=== PATIENT | female | born 1950 | race Caucasian/White ===

== ENCOUNTER → 2016-08-22 | Outpatient (CLI) | payer BC ==
[~2016-08-22] MED LIST: ACETAMINOPHEN PO; ADVAIR 250-501 EAC1 INH; ADVAIR 2501 DISK W/D PO; ASPIRIN81 M2 PO; ATIVAN PO; AUGMENTIN PO; B COMPLEX1 EACH; BENADRYL PO; CALCIUM + D SO1 EACH PO; CALCIUM PO; COMBIVENT INH14.7 GM INH; FISH OIL 1,2001 EAC3 PO; FLAGYL PO; FLONASE 0.05% N16 G1; FLONASE ALLERG9.9 ML; GABAPENTIN300 M2 PO; GLUCOSAMINE/CHONDROI PO; HYDROCODON-ACE1 EAC9 PO; IBUPROFEN IB200 M1 PO; KEFLEX PO; MULTI-VITAMIN1 EAC1 PO; NASONEX17 GM; NEURONTIN300 MG PO; OMNICEF300 MG PO; PATIENT'S PHARMACY; PROZAC PO; ROBITUSSIN-DM120 ML PO; SINGULAIR PO; SYNTHROID PO; ZANTAC PO; ZITHROMAX PO; ZYRTEC10 M1 PO
--- NOTE | ~2016-08-22 | MY11 ---
[facility] A Service of [facility] RADIOLOGY TEXT RESULTS PATIENT: KIMMIE ALCANTAR [facility] 51 UNIT #: [id number] AGE: [address]: Taylor Renner MD SEX: F ORDER DR: [id number] [place] [id number] [facility]. [place], [place] [address] [id number] O MR#: [id number] Acc #: [id number] NAME: KIMMIE ALCANTAR : 1950 SEX: F STUDY DATE/TIME: 08/22/2016 11:57 [facility] ROOM: STUDY DESCRIPTION: MY Mammogram Screening Dig Jesus Attending Physician: Taylor Renner M.D. Ordering Physician: Taylor Renner M.D. Primary Care Physician: Taylor Renner M.D. MEDICAL IMAGING REPORT This report is preliminary unless electronic signature is present EXAM Bilateral Digital Screening Mammogram with CAD 08/22/2016 INDICATION Breast cancer screening. 65-year-old asymptomatic female. No personal or family history of breast cancer. COMPARISON 08/11/2015, 02/16/2014, 03/17/2012, 03/29/2011, 03/13/2011, 04/18/2009, 04/15/2008, 02/04/2007, 02/22/2006 FINDINGS There are scattered fibroglandular tissues. No suspicious findings are present. IMPRESSION No mammographic evidence of malignancy. Annual screening mammography and clinical breast exam are recommended. A result letter will be sent to the patient. Patients over the age of 40 are entered into a reminder system with target due date for the next mammogram. BIRADS: 1 Negative Dictated by... Nikolas De La Torre M.D. THIS IS AN ELECTRONICALLY VERIFIED REPORT Nikolas De La Torre M.D. at 08/24/2016 4:01 PM Sally [facility] A Service [facility] RADIOLOGY TEXT RESULTS PATIENT: KIMMIE ALCANTAR [facility] 51 UNIT #: [id number] AGE: [address]: Taylor Renner MD SEX: F ORDER DR: TD: 08/22/2016 15:00 JOB #: [id number] MEDICAL IMAGING REPORT Page 1 of 1 COPY
== END | disposition home or self-care (01) ==
LOC: CWCC 11:40
DX: Z12.31 Encounter for screening mammogram for malignant neoplasm of breast (principal)
CPT/HCPCS: G0202

== ENCOUNTER 2016-09-12 11:32 | Emergency (ER) | payer OTHER ==
--- NOTE | ~2016-09-12 | CT2 ---
[facility] A Service of [facility] RADIOLOGY TEXT RESULTS PATIENT: KIMMIE ALCANTAR LOCATION: SED : 51 UNIT #: [id number] AGE: [address]: Sixto Aguirre MD SEX: F ORDER DR: [id number] [address] [address] [id number] E MR#: [id number] Acc #: [id number] NAME: KIMMIE ALCANTAR : 1950 SEX: F STUDY DATE/TIME: 09/12/2016 14:35 UNIT: SED ROOM: STUDY DESCRIPTION: CT Abd and Pelv W Cont Attending Physician: Sixto Aguirre M.D. Ordering Physician: Sixto Aguirre M.D. Primary Care Physician: Taylor Renner M.D. MEDICAL IMAGING REPORT This report is preliminary unless electronic signature is present. EXAM CT scan of the abdomen and pelvis with contrast HISTORY Right upper quadrant pain since 10:30 last night. COMPARISON 05/01/2012 TECHNIQUE The patient was given 100 mL of Isovue-370 and axial 5.0 mm images were obtained through the abdomen and pelvis with IV contrast. This CT exam was performed with one or more of the following radiation dose reduction techniques: automatic exposure control, adjustment of mA and/or kV according to patient size, and iterative reconstruction. FINDINGS The liver has a 7.0 mm cyst within it and is otherwise normal. The gallbladder is normal. The spleen, pancreas, adrenal glands and kidneys are normal. The aorta is normal in size and there is no adenopathy. The bowel shows left colon diverticula. The appendix is normal. The uterus and adnexal regions and bladder are normal. There are degenerative changes in the lumbar spine. IMPRESSION 1. No acute findings. The appendix is normal. There are left colon diverticula. 2. The gallbladder is slightly distended but appears normal. There is wall thickening identified. 3. Otherwise the study is negative. [facility] A Service [facility] RADIOLOGY TEXT RESULTS PATIENT: KIMMIE ALCANTAR LOCATION: SED : 51 UNIT #: [id number] AGE: [address]: Sixto Aguirre MD SEX: F ORDER DR: Dictated by... Ethan Bain M.D. THIS IS AN ELECTRONICALLY VERIFIED REPORT Ethan Bain M.D. at 09/12/2016 3:39 PM JOEL/alina TD: 09/12/2016 15:12 JOB #: [id number] MEDICAL IMAGING REPORT Page 1 of 1
[~2016-09-12 11:32] MED LIST changes: -ACETAMINOPHEN PO; -ADVAIR 250-501 EAC1 INH; -ASPIRIN81 M2 PO; -AUGMENTIN PO; -B COMPLEX1 EACH; -CALCIUM + D SO1 EACH PO; -FISH OIL 1,2001 EAC3 PO; -FLAGYL PO; -FLONASE 0.05% N16 G1; -FLONASE ALLERG9.9 ML; -GABAPENTIN300 M2 PO; -HYDROCODON-ACE1 EAC9 PO; -IBUPROFEN IB200 M1 PO; -NEURONTIN300 MG PO; -OMNICEF300 MG PO; -PATIENT'S PHARMACY; -SINGULAIR PO; -ZYRTEC10 M1 PO
[2016-09-12] MEDS ORDERED: FLONASE 0.05% N16 G1 (11:34)
[2016-09-12] MEDS ORDERED: SINGULAIR PO (11:34)
[2016-09-12] MEDS ORDERED: ZYRTEC10 M1 PO (11:34)
[2016-09-12] MEDS ORDERED: CALCIUM + D SO1 EACH PO (11:35)
[2016-09-12 13:20] LABS: BASOPHIL# 0.1 X10e3 (0-0.3); BASOPHIL% 0.7 % (0-2.5); EOSINOPHIL# 0.2 X10e3 (0-0.7); HEMATOCRIT 46.7 % (35.0-45.0); HEMOGLOBIN 16.3 gm/dL (12.0-16.0); LYMPHOCYTE# 1.7 X10e3 (1.0-3.5); LYMPHOCYTE% 14.2 % (17.0-45.0); MEAN CELL VOLUME 94.9 FL (83-96); MEAN CORPUSCULAR HGB CONC 34.8 g/dL (30-36); MEAN PLATELET VOLUME 9.9 FL (6.5-11.5); MONOCYTE# 0.7 X10e3 (0-1.0); MONOCYTE% 5.5 % (3.0-12.0); NEUTROPHIL# 9.4 X10e3 (1.5-7.1); NEUTROPHIL% 77.6 % (40-75); PLATELET COUNT 257 X10e3 (140-420); RED BLOOD COUNT 4.93 X10e (3.90-5.30); RED CELL DISTRIBUTION WIDTH 12.8 % (11.0-15.5); WHITE BLOOD COUNT 12.2 X10e3 (4.0-10.5)
[2016-09-12 13:27] LABS: DIFF IND NO
[2016-09-12 13:41] LABS: ALBUMIN SERUM 4.6 g/dL (3.5-5.0); BILIRUBIN, DIRECT 0.1 mg/dL (0.0-0.2); BILIRUBIN,INDIRECT 0.4 mg/dL (0.0-0.9); BILIRUBIN,TOTAL 0.5 mg/dL (0.2-2.0); BUN/CREATININE RATIO 22.85; CALCIUM SERUM 8.9 mg/dL (8.4-10.2); CREATININE SERUM 0.7 mg/dL (0.6-1.4); GLOM FILT RATE Estimated 91.6 mL/min (>60); POTASSIUM 3.9 mmol/L (3.5-5.1); PROTEIN TOTAL SERUM 7.7 g/dL (6.0-8.3)
[2016-09-12 13:44] LABS: URINE SOURCE CLEAN CATCH
[2016-09-12 13:47] LABS: URINE APPEARANCE CLEAR; URINE BILIRUBIN NEG (NEG); URINE BLOOD TRACE-INTACT (NEG); URINE COLOR YELLOW; URINE GLUCOSE NEG (NORM); URINE KETONE TRACE (NEG); URINE LEUKOCYTE ESTERASE NEG (NEG); URINE NITRATE NEG (NEG); URINE PH 5.5 (5-8); URINE PROTEIN NEG (NEG); URINE SPECIFIC GRAVITY <=1.005 (1.003-1.035); URINE UROBILINOGEN 0.2 MG/DL (NORM)
[2016-09-12 13:50] LABS: MICRO INDICATED? YES
[2016-09-12 14:10] LABS: CULTURE INDICATED? NO; URINE BACTERIA NEG (NEG); URINE RBC 0-2 /[HPF] (0-2); URINE WBC 0-2 /[HPF] (0-5)
[2016-09-13] MEDS ORDERED: NEURONTIN300 MG PO (02:14)
[2016-11-05] MEDS ORDERED: B COMPLEX1 EACH (11:49)
[2016-11-05] MEDS ORDERED: IBUPROFEN IB200 M1 PO (11:50)
[2016-11-05] MEDS ORDERED: ASPIRIN81 M2 PO (11:50)
[2016-11-05] MEDS ORDERED: FISH OIL 1,2001 EAC3 PO (11:52)
[2016-11-05] MEDS ORDERED: FLONASE ALLERG9.9 ML (11:53)
== END 2016-09-12 15:36 | disposition home or self-care (01) ==
LOC: SED 11:32
PROVIDERS: Emergency Medicine
DX: R10.84 Generalized abdominal pain (principal); J45.909 Unspecified asthma, uncomplicated; K21.9 Gastro-esophageal reflux disease without esophagitis; F41.9 Anxiety disorder, unspecified; F17.200 Nicotine dependence, unspecified, uncomplicated; Z79.899 Other long term (current) drug therapy
CPT/HCPCS: 74177; 80048; 80076; 81003; 83690; 85025; 96361; 96374; 96375; 99284; J2405; Q9967

== ENCOUNTER 2016-09-13 02:05 | Inpatient (IN) | payer OTHER ==
--- NOTE | ~2016-09-13 | OR ---
Unit #: [id number] #: [id number] Patient: KIMMIE ALCANTAR [id number] [address] [place], [place] [address] [id number] I MR#: [id number] NAME: KIMMIE ALCANTAR. ROOM: 11210 Date of Procedure: 09/13/2016 Admission Date: 09/13/2016 Surgeon: Lenard Rabago M.D. : 1950 Attending Physician: Tita Alvarez M.D. Primary Care Physician: Taylor Renner M.D. PROCEDURE OPERATIVE NOTE PROCEDURES PERFORMED 1. EGD to descending duodenum. 2. ERCP with sphincterotomy. 3. ERCP with balloon extraction of common bile duct stones. 4. ERCP with stenting of common bile duct with 7 x 7 stent. INDICATION The patient presented with acute biliary colic, possible ascending cholangitis, obstructive jaundice, most likely secondary to common bile duct stones. MEDICATIONS Monitored anesthesia. POSTOP FINDING 1. EGD exam shows mild gastritis, normal esophagus, normal duodenum and distal duodenum. 2. ERCP exam of bile duct shows significant dilation with 10 mm filling defect as well as pus coming out of the ampulla. 3. Small sphincterotomy was made. 4. Balloon extraction of a lot of pus and a single pigment small stone was carried out. 5. A 7 x 7 CBD stent was placed. 6. BD was injected. PLAN Follow up clinically. Laparoscopic cholecystectomy per Surgery. Repeat ERCP after six weeks. DESCRIPTION OF PROCEDURE Patient was explained the procedure, risks and benefits along with the risks and benefits of anesthesia. She was brought to the endoscopy room. Propofol anesthesia was given. She was laid in a prone position. EGD was done first. The scope was passed down the mouth into the esophagus, stomach, duodenum and distal duodenum. Findings as described. No biopsies taken. Gently, I pulled the scope out of patient's mouth. At this time, a side-viewing ERCP scope was passed down the mouth into the esophagus, stomach, duodenum, and distal duodenum. Ampulla was very prominent. After one or two attempts, I was able to get into the common bile duct. The findings have been described above. A small sphincterotomy was made. A lot of pus came out. Balloon extraction of pus Unit #: [id number] #: [id number] Patient: KIMMIE ALCANTAR and a single pigment stone was carried out successfully. At this point, we placed a 7 x 7 CBD stent across the duct under fluoroscopic and endoscopic guidance. The stomach was then decompressed gently. The scope was pulled out. The patient tolerated the procedure well. No major complications. Dictated by... Joanne Whittington/mata TD: 09/13/2016 11:54 JOB #: [id number] PROCEDURE OPERATIVE NOTE Page 1 of 1 X Lenard Rabago MD X PROCEDURE OPERATIVE NOTE
--- NOTE | ~2016-09-13 | CR63 ---
[facility]. [facility] A Service of [facility] RADIOLOGY TEXT RESULTS PATIENT: KIMMIE ALCANTAR LOCATION: [place] [address]- : 51 UNIT #: [id number] AGE: [address]: Tita Alvarez MD SEX: F ORDER DR: [id number] [place] [address] [id number] I MR#: [id number] Acc #: [id number] NAME: KIMMIE ALCANTAR : 1950 SEX: F STUDY DATE/TIME: 09/13/2016 03:13 UNIT: SEDOF ROOM: [facility] STUDY DESCRIPTION: CR Chest 2 View Attending Physician: Tita Alvarez M.D. Ordering Physician: Jason Sanders M.D. Primary Care Physician: Taylor Renner M.D. MEDICAL IMAGING REPORT This report is preliminary unless electronic signature is present. EXAM Chest x-ray 09/13 and 3 hours INDICATIONS Shaking chills, fever and cough started prior to arrival this evening. History of smoking. FINDINGS 2 views of the chest are compared with 11/02/2007. Cardiac and mediastinal contours are normal. The lungs are emphysematous but clear. There is no pneumothorax. IMPRESSION Emphysema. No active disease. Dictated by... Danny Barlow Jr., M.D. THIS IS AN ELECTRONICALLY VERIFIED REPORT Danny Barlow Jr., M.D. at 09/13/2016 10:13 PM KIMBER/aarti TD: 09/13/2016 06:13 JOB #: [id number] MEDICAL IMAGING REPORT Page 1 of 1
--- NOTE | ~2016-09-13 | CR84 ---
[facility] A Service of [facility] RADIOLOGY TEXT RESULTS PATIENT: KIMMIE ALCANTAR LOCATION: [facility] 549-01 : 51 UNIT #: [id number] AGE: [address]: Tita Alvarez MD SEX: F ORDER DR: [id number] [facility] [address] [facility] [place], [place] [address] [id number] I MR#: [id number] Acc #: [id number] NAME: KIMMIE ALCANTAR : 1950 SEX: F STUDY DATE/TIME: 09/13/2016 10:06 UNIT: [facility] ROOM: [facility] STUDY DESCRIPTION: CR ERCP Biliary and Pancr SI Attending Physician: Tita Alvarez M.D. Ordering Physician: Lenard Rabago M.D. Primary Care Physician: Taylor Renner M.D. MEDICAL IMAGING REPORT This report is preliminary unless electronic signature is present EXAM Fluoroscopy during ERCP 09/13/2016 HISTORY 65-year-old female with history of obstructive jaundice. TECHNIQUE C-arm fluoroscopy was provided by x-ray technologist during ERCP procedure performed by Dr. Rabago. Fluoroscopy time 2 minutes, 32 seconds. 6 fluoroscopic spot film images were recorded. FINDINGS Minimal extrahepatic bile duct dilatation. By report, balloon sweeps were performed to remove bile duct stone material, a sphincterotomy was performed and a bile duct stent was placed. Final image shows satisfactory position of the common bile duct stent. Please see operative note for details. Dictated by... Jamey Stewart M.D. THIS IS AN ELECTRONICALLY VERIFIED REPORT Jamey Stewart M.D. at 09/13/2016 4:29 PM LUISW/kd TD: 09/13/2016 14:39 JOB #: [id number] MEDICAL IMAGING REPORT Page 1 of 1 COPY
--- NOTE | ~2016-09-13 | OR ---
Unit #: [id number] #: [id number] Patient: KIMMIE ALCANTAR [id number] [address] [place], [place] [address] [id number] I MR#: [id number] NAME: KIMMIE ALCANTAR. ROOM: [facility] Date of Procedure: 09/14/2016 Admission Date: 09/13/2016 Surgeon: Anuel Hubbard III, M.D. : 1950 Attending Physician: Tita Alvarez M.D. Primary Care Physician: Taylor Renner M.D. OPERATIVE REPORT PREOPERATIVE DIAGNOSIS History of cholangitis and gallstones. POSTOPERATIVE DIAGNOSES History of cholangitis and gallstones with hydrops gallbladder. PROCEDURE PERFORMED Laparoscopic cholecystectomy. ANESTHESIA General. SPECIMENS Gallbladder to Pathology. COMPLICATIONS None apparent. ESTIMATED BLOOD LOSS Minimal. INDICATIONS FOR PROCEDURE This is a 65-year-old lady, who presented with cholangitis and underwent ERCP yesterday with stent placement. She feels better today and is here today for laparoscopic cholecystectomy. DESCRIPTION OF PROCEDURE After consent was obtained, the patient was brought to the operating room and placed in the supine position. General anesthetic was administered. Her abdomen was prepped and draped in standard surgical fashion. I made a 5-mm incision in the right upper quadrant. I used an Optiview to enter into the peritoneal cavity without any difficulty. CO2 pneumoperitoneum was established. Next, a second 5-mm port was placed in the infraumbilical region and an 11-mm port was placed in the midepigastric region and a third 5-mm port was placed in the right lateral subcostal region. She had a distended inflamed appearing gallbladder with really no adhesions to it. Upon grasping the gallbladder, the dome of it did rupture and it had some hydrops fluid as well as some purulent material within it. I was able to retract it superiorly and laterally and I was able to dissect out the cystic duct and cystic artery, and after these were carefully identified, I placed two clips proximally, one clip distally along both structures and then they were divided. The Unit #: [id number] #: [id number] Patient: KIMMIE ALCANTAR gallbladder was then taken off the liver bed using the hook cautery. I had good hemostasis. I did irrigate and had again good hemostasis at the end. The gallbladder was placed in an EndoCatch bag and retrieved through the epigastric port incision without dilatation of the fascia. I removed all the trocars and released pneumoperitoneum. The incisions were all injected with 0.25% plain Marcaine and I reapproximated the skin edges with interrupted 4-0 Vicryl subcuticular suture. Steri-Strips were then applied. The patient tolerated the procedure without any problems and returned to recovery room in stable condition. Dictated by... Anuel Hubbard III, M.D. VCL/briana TD: 09/15/2016 01:20 JOB #: [id number] CC: Lenard Rabago M.D. OPERATIVE REPORT Page 1 of 1 X Anuel Hubbard III, MD X PROCEDURE OPERATIVE NOTE
--- NOTE | ~2016-09-13 | DS ---
Unit #: [id number] #: [id number] Patient: KIMMIE ALCANTAR [id number] [address] [address] [id number] I MR#: [id number] NAME: KIMMIE ALCANTAR ROOM: 549 Age: 65 Sex: F Admission Date: 09/13/2016 : 1950 Discharge Date: 09/15/2016 Attending Physician: Tita Alvarez M.D. Primary Care Physician: Taylor Renner M.D. DISCHARGE SUMMARY DISCHARGE DIAGNOSES 1. Acute cholecystitis status post lap cholecystectomy, stable from surgery and GI standpoint both to be discharge. 2. Elevated LFTs trending down. 3. Chronic obstructive pulmonary disease at the baseline. 4. Depression and anxiety, continue home medications. 5. Hypothyroidism, continue home medications. DISCHARGE MEDICATIONS 1. Advair Diskus inhaler b.i.d. 2. Tylenol p.r.n. 3. Flonase nasal spray daily 4. Neurontin 300 mg b.i.d. 5. Zyrtec 10 mg daily 6. Ativan 0.5 mg p.o. t.i.d. p.r.n. for anxiety as a home dose 7. Zantac 150 mg p.o. daily 8. Singulair 10 mg daily 9. Multivitamin daily 10. Calcium and vitamin D one tablet daily 11. Levothyroxine 150 mcg daily 12. Mcallen 7.5 q.6h p.r.n. for pain 13. Augmentin 875 mg p.o. b.i.d. for five days CONSULTS DURING THIS HOSPITAL STAY 1. Dr. Rabago - GI 2. Dr. Pena - surgery LABS AND DIAGNOSTIC PRODEDURES DURING THIS HOSPITAL STAY 1. Lap merline per Dr. Pena. 2. CT of the abdomen and pelvis on admission, no acute findings. 3. Chest x-ray also no acute findings. 4. ERCP with the bile duct stone extraction and sphincterotomy was performed. HISTORY OF PRESENT ILLNESS AND HOSPITAL STAY Please refer to H and P done by me for initial presentation of this female. ACTIVE PROBLEMS DIAGNOSED Abdominal pain, turned out to be acute cholecystitis, status post evaluation per GI and surgery, status post ERCP as above. CT of the abdomen as above. Status post lap cholecystectomy, postop day #2 the patient is doing great. Her LFTs are getting down. She is eating diet without any problems. White count at 10.7 with the very low grade fever 99.4; however, had been taking Zosyn last three days. Will discharge on Unit #: [id number] #: [id number] Patient: KIMMIE ALCANTAR p.o. Augmentin for five more days, again cleared to be discharged both GI and surgery. OUTPATIENT FOLLOWUP With primary care physician in mog-ff-oskvf days. The patient was advised that if she continues to be with the fevers to come back to the hospital. Dictated by... Joanne Lucio/neto TD: 09/15/2016 14:06 JOB #: [id number] DISCHARGE SUMMARY Page 1 of 1 X Curtis Martin MD X DISCHARGE SUMMARY
--- NOTE | ~2016-09-13 | HP ---
Unit #: [id number] #: [id number] Patient: KIMMIE ALCANTAR [id number] [address] [address] [id number] I MR#: [id number] NAME: KIMMIE ALCANTAR ROOM: 549 Age: 65 Sex: F Admission Date: 09/13/2016 : 1950 Attending Physician: Tita Alvarez M.D. Primary Care Physician: Taylor Renner M.D. HISTORY AND PHYSICAL ADMISSION DIAGNOSES 1. Abdominal pain. 2. Acute merline. 3. Chronic obstructive pulmonary disease. 4. Depression and anxiety. HISTORY OF PRESENT ILLNESS Ms. Alcantar is a 65-year-old female, a patient of Dr. Alvarez, who comes to the emergency room with the complaints of the abdominal pain. Apparently patent had been seen at an outlying ER earlier this week, was worked up and discharged home. Apparently her symptoms got worse with some nausea and vomiting, decided to come back. She was evaluated by GI, underwent the ERCP with the bile duct stone removal and sphincterotomy. Patient currently states her symptoms got better, denied any chest pain, headache, dizziness, fever, chills, or diarrhea. Her pain is mostly in the right upper quadrant, which is described as sharp. At worse it was 8/10. Initial evaluation showed some elevated transaminases at 192 and 100 but again patient currently feeling better. REVIEW OF SYSTEMS A 12-point review of systems is negative except as above in HPI. PAST MEDICAL HISTORY Past medical history is significant for a history of: 1. COPD. 2. Depression and anxiety. 3. Hypothyroidism. PAST SURGICAL HISTORY Past surgical history is significant for tubal ligation. HOME MEDICATIONS Home medications include a multivitamin, Zantac, Synthroid, Advair, lorazepam, Flonase, Singulair, Zyrtec, calcium with vitamin D and Neurontin. ALLERGIES No known drug allergies. SOCIAL HISTORY She is an active smoker, denies any alcohol or illicit drugs. FAMILY HISTORY Unit #: [id number] #: [id number] Patient: KIMMIE ALCANTAR Unremarkable. PHYSICAL EXAMINATION GENERAL: On the physical exam the patient is a 65-year-old female not in acute distress. VITAL SIGNS: BP 124/82. Heart rate 82. Respirations 18. Temperature 98.5. HEENT: Head is atraumatic. Pupils equal, round and reactive to light and accommodation. Extraocular muscles intact. Oropharynx clear. NECK: Neck is supple. No mass. No JVD. No bruits. CHEST: Diminished bilaterally. CARDIOVASCULAR EXAM: S1, S2. No murmurs. ABDOMEN: Soft, tender at the right upper quadrant. No rebound. Bowel sounds are diminished. EXTREMITIES: Lower extremities without any cyanosis, clubbing or edema. NEUROLOGICAL: Patient grossly intact. No focal deficits. DIAGNOSTIC STUDIES IMAGING: Chest x-ray shows emphysema. PROCEDURE: ERCP as above. LABORATORY: Transaminase is elevated as above. White count at 10.2, hemoglobin and hematocrit 15.5 and 45, rest of the chemistry significant with the blood glucose of 167. Initial white count was 12,000 so patient also was put on some IV Zosyn. ASSESSMENT AND PLAN 1. Abdominal pain with the acute merline, status post ERCP with bile duct stone removal and sphincterotomy: Status post evaluation per Surgery, scheduled for cholecystectomy tomorrow. 2. Chronic obstructive pulmonary disease, stable at the baseline. 3. Depression and anxiety: Continue home meds. 4. Hypothyroidism: Continue home meds. 5. Continue with GI and DVT prophylaxis. Dictated by Curtis Martin M.D. OC/jessa TD: 09/13/2016 20:54 JOB #: [id number] HISTORY AND PHYSICAL Page 1 of 1 X Curtis Martin MD X HISTORY AND PHYSICAL
[~2016-09-13 02:05] MED LIST changes: +CALCIUM + D SO1 EACH PO; +FLONASE 0.05% N16 G1; +SINGULAIR PO; +ZYRTEC10 M1 PO
[2016-09-13] MEDS ORDERED: NEURONTIN300 MG PO (02:14)
[2016-09-13 02:59] LABS: BASOPHIL# 0.1 X10e3 (0-0.3); BASOPHIL% 0.8 % (0-2.5); EOSINOPHIL# 0.1 X10e3 (0-0.7); EOSINOPHIL% 1.2 % (0.0-7.0); HEMOGLOBIN 15.5 gm/dL (12.0-16.0); LYMPHOCYTE# 0.5 X10e3 (1.0-3.5); LYMPHOCYTE% 5.2 % (17.0-45.0); MEAN CELL VOLUME 95.3 FL (83-96); MEAN CORPUSCULAR HEMOGLOBIN 32.9 PG (28-34); MEAN CORPUSCULAR HGB CONC 34.5 g/dL (30-36); MEAN PLATELET VOLUME 9.8 FL (6.5-11.5); MONOCYTE# 0.1 X10e3 (0-1.0); NEUTROPHIL# 9.4 X10e3 (1.5-7.1); NEUTROPHIL% 91.8 % (40-75); PLATELET COUNT 233 X10e3 (140-420); RED BLOOD COUNT 4.72 X10e (3.90-5.30); RED CELL DISTRIBUTION WIDTH 12.8 % (11.0-15.5); WHITE BLOOD COUNT 10.2 X10e3 (4.0-10.5)
[2016-09-13 03:00] LABS: DIFF IND NO
[2016-09-13 03:16] LABS: BILIRUBIN, DIRECT 1.3 mg/dL (0.0-0.2); BILIRUBIN,INDIRECT 1.1 mg/dL (0.0-0.9); BILIRUBIN,TOTAL 2.4 mg/dL (0.2-2.0); BUN/CREATININE RATIO 14.44; CALCIUM SERUM 8.9 mg/dL (8.4-10.2); CREATININE SERUM 0.9 mg/dL (0.6-1.4); GLOM FILT RATE Estimated 67.6 mL/min (>60); POTASSIUM 4.1 mmol/L (3.5-5.1); PROTEIN TOTAL SERUM 7.1 g/dL (6.0-8.3)
[2016-09-13 03:32] LABS: URINE SOURCE CLEAN CATCH
[2016-09-13 03:34] LABS: URINE APPEARANCE CLEAR; URINE BILIRUBIN NEG (NEG); URINE BLOOD NEG (NEG); URINE COLOR YELLOW; URINE GLUCOSE NEG (NORM); URINE KETONE NEG (NEG); URINE LEUKOCYTE ESTERASE TRACE (NEG); URINE NITRATE NEG (NEG); URINE PROTEIN NEG (NEG); URINE SPECIFIC GRAVITY 1.015 (1.003-1.035)
[2016-09-13 03:39] LABS: MICRO INDICATED? YES
[2016-09-13 03:40] LABS: CULTURE INDICATED? NO; URINE BACTERIA NEG (NEG); URINE MUCUS PRESENT; URINE RBC 0-2 /[HPF] (0-2); URINE SQUAMOUS EPITHELIAL CELL OCCAS /[HPF]; URINE TRANSITIONAL EPI CELLS FEW /[HPF]
[2016-09-14 07:27] LABS: HEMATOCRIT 41.2 % (35.0-45.0); HEMOGLOBIN 13.9 gm/dL (12.0-16.0); MEAN CELL VOLUME 96.3 FL (83-96); MEAN CORPUSCULAR HEMOGLOBIN 32.5 PG (28-34); MEAN CORPUSCULAR HGB CONC 33.8 g/dL (30-36); MEAN PLATELET VOLUME 10.9 FL (6.5-11.5); RED BLOOD COUNT 4.28 X10e (3.90-5.30); RED CELL DISTRIBUTION WIDTH 12.6 % (11.0-15.5); WHITE BLOOD COUNT 10.6 X10e3 (4.0-10.5)
[2016-09-14 08:01] LABS: ALBUMIN SERUM 3.2 g/dL (3.5-5.0); BILIRUBIN,TOTAL 4.8 mg/dL (0.2-2.0); BUN/CREATININE RATIO 17.14; CALCIUM SERUM 8.5 mg/dL (8.4-10.2); CREATININE SERUM 0.7 mg/dL (0.6-1.4); GLOM FILT RATE Estimated 91.6 mL/min (>60); POTASSIUM 3.3 mmol/L (3.5-5.1); PROTEIN TOTAL SERUM 6.4 g/dL (6.0-8.3)
[2016-09-15 05:15] LABS: BASOPHIL% 0.2 % (0-2.5); EOSINOPHIL% 0.1 % (0.0-7.0); HEMOGLOBIN 13.2 gm/dL (12.0-16.0); LYMPHOCYTE# 0.8 X10e3 (1.0-3.5); LYMPHOCYTE% 7.1 % (17.0-45.0); MEAN CELL VOLUME 95.2 FL (83-96); MEAN CORPUSCULAR HEMOGLOBIN 32.2 PG (28-34); MEAN CORPUSCULAR HGB CONC 33.8 g/dL (30-36); MEAN PLATELET VOLUME 10.5 FL (6.5-11.5); MONOCYTE# 0.5 X10e3 (0-1.0); MONOCYTE% 4.8 % (3.0-12.0); NEUTROPHIL# 9.4 X10e3 (1.5-7.1); NEUTROPHIL% 87.8 % (40-75); PLATELET COUNT 184 X10e3 (140-420); RED CELL DISTRIBUTION WIDTH 12.7 % (11.0-15.5); WHITE BLOOD COUNT 10.7 X10e3 (4.0-10.5)
[2016-09-15 05:27] LABS: DIFF IND NO
[2016-09-15 05:57] LABS: ALBUMIN SERUM 3.1 g/dL (3.5-5.0); BUN/CREATININE RATIO 22.5; CALCIUM SERUM 8.6 mg/dL (8.4-10.2); CREATININE SERUM 0.8 mg/dL (0.6-1.4); MAGNESIUM 2.1 mg/dL (1.6-3.0); POTASSIUM 4.6 mmol/L (3.5-5.1); PROTEIN TOTAL SERUM 6.5 g/dL (6.0-8.3)
[2016-09-15 05:58] LABS: BILIRUBIN,TOTAL 1.7 mg/dL (0.2-2.0)
[2016-09-15] MEDS ORDERED: AUGMENTIN PO (14:03)
[2016-09-15] MEDS ORDERED: HYDROCODON-ACE1 EAC9 PO (14:03)
[2016-09-15] MEDS ORDERED: ACETAMINOPHEN PO (14:08)
[2016-11-05] MEDS ORDERED: B COMPLEX1 EACH (11:49)
[2016-11-05] MEDS ORDERED: IBUPROFEN IB200 M1 PO (11:50)
[2016-11-05] MEDS ORDERED: ASPIRIN81 M2 PO (11:50)
[2016-11-05] MEDS ORDERED: FISH OIL 1,2001 EAC3 PO (11:52)
[2016-11-05] MEDS ORDERED: FLONASE ALLERG9.9 ML (11:53)
== END 2016-09-15 15:24 | disposition home or self-care (01) | DRG 418 ==
LOC: SED 02:05 → CED 02:53 → CEDOF 04:30 → SED 04:30 → SEDOF 04:30 → C5B 04:30 → CED 07:36 → CEDOF 07:36 → C5B 12:43
PROVIDERS: Emergency Medicine; Internal Medicine; Surgery
PROC: 0DJ08ZZ Inspection of Upper Intestinal Tract, Via Natural or Artificial Opening Endoscopic (ICD-10-PCS; 2016-09-13)
PROC: 0F798DZ Dilation of Common Bile Duct with Intraluminal Device, Via Natural or Artificial Opening Endoscopic (ICD-10-PCS; 2016-09-13 10:45)
PROC: 0FC98ZZ Extirpation of Matter from Common Bile Duct, Via Natural or Artificial Opening Endoscopic (ICD-10-PCS; 2016-09-13 10:45)
PROC: BF10YZZ Fluoroscopy of Bile Ducts using Other Contrast (ICD-10-PCS; 2016-09-13 10:45)
PROC: 0FT44ZZ Resection of Gallbladder, Percutaneous Endoscopic Approach (ICD-10-PCS; principal; 2016-09-14 10:00)
DX: K80.63 Calculus of gallbladder and bile duct with acute cholecystitis with obstruction (principal); K82.1 Hydrops of gallbladder; R94.5 Abnormal results of liver function studies; J44.9 Chronic obstructive pulmonary disease, unspecified; F32.9 Major depressive disorder, single episode, unspecified; F41.9 Anxiety disorder, unspecified; E03.9 Hypothyroidism, unspecified; Z88.2 Allergy status to sulfonamides; Z98.51 Tubal ligation status
CPT/HCPCS: 36415; 71020; 74330; 80048; 80053; 80076; 81003; 82150; 83605; 83690; 83735; 84132; 85025; 85027; 87040; 87077; 87186; 88304; 94760; 96361; 96365; 99285; J0131; J0330; J1100; J1610; J1885; J2250; J2270; J2405; J2543; J2710; J3010

== ENCOUNTER 2016-11-13 15:31 | Inpatient (IN) | payer OTHER ==
[~2016-11-13] VITALS: Ht 163.8 cm; Wt 87.0 kg
--- NOTE | ~2016-11-13 | OR ---
Unit #: [id number] #: [id number] Patient: KIMMIE ALCANTAR [id number] [address] [address] [id number] I MR#: [id number] NAME: KIMMIE ALCANTAR. ROOM: [facility] Date of Procedure: 11/13/2016 Admission Date: 11/13/2016 Surgeon: Lenard Rabago M.D. : 1950 Attending Physician: Curtis Martin M.D. Primary Care Physician: Sergey Liang M.D. OPERATIVE REPORT PROCEDURE PERFORMED Endoscopic retrograde cholangiopancreatography with stent removal; endoscopic retrograde cholangiopancreatography with balloon extraction of biliary sludge. INDICATIONS FOR PROCEDURE This is a 66-year-old with history of cholangitis and common bile duct stone, here for repeat evaluation for stent removal and bile duct exploration. MEDICATIONS Monitored anesthesia. POSTOPERATIVE FINDINGS 1. Existing CBD stent was removed. 2. Bile duct was dilated and there was significant filling defects seen. 3. Balloon extraction of the bile duct was carried out several times and a lot of sludge was extracted. 4. An occlusion cholangiogram at the end shows no further filling defects. 5. Pancreatic duct was not injected. 6. The patient is status post cholecystectomy. 7. Limited EGD exam shows evidence of small hiatal hernia. DESCRIPTION OF PROCEDURE The patient was explained of the procedure, risks, and benefits along with the risks and benefits of anesthesia. She was brought to the endoscopy room and laid in the prone position. Monitored anesthesia was given. The scope was passed down the mouth into the esophagus and stomach. Ampulla was visualized. There was some pus coming out of the ampulla. Using a snare, I pulled the stent out in one piece under the fluoroscopic guidance. Bile duct was then cannulated. Findings have been described below. Balloon extraction was carried out several times and a lot of sludge was extracted. An occlusion cholangiogram done showed no further filling defects. At this point, and decompressed the stomach and gently pulled the scope out of the patient's mouth. She tolerated it well. Dictated by... Lenard Rabago M.D. [facility] Unit #: [id number] #: [id number] Patient: KIMMIE ALCANTAR TD: 11/14/2016 03:34 JOB #: [id number] CC: Tita Alvarez M.D. OPERATIVE REPORT Page 1 of 1 X Lenard Rabago MD PROCEDURE OPERATIVE NOTE
--- NOTE | ~2016-11-13 | CR72 ---
[facility] A Service of [facility] RADIOLOGY TEXT RESULTS PATIENT: KIMMIE ALCANTAR LOCATION: [facility] 555-01 : 51 UNIT #: [id number] AGE: [address]: Curtis Martin MD SEX: F ORDER DR: [id number] [facility] [address] [facility]. [place], [place] [address] [id number] I MR#: [id number] Acc #: [id number] NAME: KIMMIE ALCANTAR : 1950 SEX: F STUDY DATE/TIME: 11/13/2016 16:42 UNIT: [facility] ROOM: [facility] STUDY DESCRIPTION: CR Chest Single View Portable Attending Physician: Curtis Martin M.D. Ordering Physician: Danny Simon M.D. Primary Care Physician: Sergey Liang M.D. MEDICAL IMAGING REPORT This report is preliminary unless electronic signature is present EXAM Portable chest INDICATIONS Cough and fever since ERCP yesterday. COMPARISON 09/13/2016. FINDINGS An AP view of the chest were obtained. The heart size and vascularity are normal. The lungs are clear, except for minimal scarring or atelectasis in the left costophrenic angle. The bones are normal. IMPRESSION Minimal subsegmental axis left costophrenic angle. Otherwise, no active disease. Dictated by... Ethan Bain M.D. THIS IS AN ELECTRONICALLY VERIFIED REPORT Ethan Bain M.D. at 11/14/2016 11:50 AM JOEL/roc TD: 11/14/2016 03:10 JOB #: [id number] MEDICAL IMAGING REPORT Page 1 of 1 COPY
--- NOTE | ~2016-11-13 | CO ---
Unit #: [id number] #: [id number] Patient: KIMMIE ALCANTAR [id number] [address] [address] [id number] MR#: [id number] NAME: KIMMIE ALCANTAR ROOM: 555 Age: 66 Sex: F Admission Date: 11/13/2016 : 1950 Attending Physician: Curtis Martin M.D. Primary Care Physician: Sergey Liang M.D. Consultation Date: 11/14/2016 CONSULTATION REPORT The patient was admitted to Dr. Martin. HISTORY OF PRESENT ILLNESS This is a 66-year-old female that was last here in August 2016 where she was diagnosed with acute cholecystitis. Patient had a laparoscopic cholecystectomy and ERCP at that time. The course was complicated by klebsiella sepsis. It appears that patient was treated and was also sent home on oral Augmentin. The patient reports that she was doing well at home and had a follow-up appointment with her GI doctor yesterday where she had a repeat ERCP and stent removal. The patient was at home several hours later and began with fever and chills/shivers. Patient called the hospital and she was told to come back. Her blood cultures are currently pending. Her temperature has overall improved from 102 degrees Fahrenheit to 98. Her white blood cell count is stable and her blood cultures are pending. The patient was started on Zosyn and vancomycin x1 and infectious disease was asked to evaluate. PAST MEDICAL HISTORY 1. Asthma. 2. COPD. 3. Depression and anxiety. 4. Hypothyroidism. 5. ERCP. PAST SURGICAL HISTORY 1. Cholecystectomy. 2. Tubal ligation. ALLERGIES No known allergies. MEDICATIONS Zosyn and vancomycin x1. For other medications, please refer to patient's MAR. SOCIAL HISTORY The patient has positive tobacco abuse. No alcohol or drug use. REVIEW OF SYSTEMS The patient reports resolved chills and shivers but no real rigors noted. She denies any sweats. She denies chest pain, shortness of breath, cough. She does report some intermittent nosebleed. She denies any significant abdominal pain, nausea, vomiting, diarrhea, or nonhealing wounds. Unit #: [id number] #: [id number] Patient: KIMMIE ALCANTAR PHYSICAL EXAMINATION VITAL SIGNS: Temperature is 97.8 with a T-max of 102, pulse is 75, blood pressure is 136/74, respiratory rate 18. GENERAL: This is a no apparent distress female, who was talking on the phone when I initially entered the room. HEENT: Her pupils are equal. Her neck is supple. CARDIOVASCULAR: S1, S2. Regular rate and rhythm. PULMONARY: Clear to auscultation bilaterally with no wheezes or rhonchi noted. ABDOMEN: Minimal tenderness in the left lower quadrant with positive bowel sounds and no distention. EXTREMITIES: No clubbing, cyanosis, or edema. DIAGNOSTIC STUDIES LABORATORY: BUN 9, creatinine 0.7, sodium 140, potassium 3.9, chloride 109, CO2 of 25. Bilirubin 1.1, AST 122 which is up today from 40 yesterday, ALT is 158 which is increased from 34 yesterday, alkaline phosphatase is normal at 84. Amylase is 10. Lipase is 17. Lactic acid is 1.7. Urinalysis is unremarkable. Urine culture and blood cultures are both currently pending. In August 2016, the patient had Klebsiella in the blood. IMAGING: The ERCP yesterday showed bile duct stone material removal in August 2016; however, additional imaging is not available at this time. IMPRESSION This is a 66-year-old female in August 2016 that had klebsiella sepsis with cholecystitis and what sounds to be cholangitis or pancreatitis as well and had an endoscopic retrograde cholangiopancreatography with stent placement at that time. The patient did well and was at home in her normal state of health until several hours after her endoscopic retrograde cholangiopancreatography that was done on November 13, 2016. Patient began with chills and shivers and suspect at this time that she had a transient bacteremia related to her recent procedure. At this time, doubt urinary tract infection and no objection to continue Zosyn for now. Will follow blood cultures. Patient already states that she feels better but will need to continue to follow along to see if there is any relapse of klebsiella. Will discontinue vancomycin. Thank you for allowing us to participate in the care of this patient. Further recommendations to follow pending patient's clinical course. Dictated by... Yasemin Brewer, Evelyne.P.R.N. for Acosta Warren M.D. [facility]/bethanie :51 TD: 11/14/2016 09:00 JOB #: [id number] Unit #: [id number] #: [id number] Patient: KIMMIE ALCANTAR CONSULTATION REPORT Page 1 of 1 X X CONSULTATION REPORT
--- NOTE | ~2016-11-13 | DS ---
Unit #: [id number] #: [id number] Patient: KIMMIE ALCANTAR [id number] [address] [address] [id number] I MR#: [id number] NAME: KIMMIE ALCANTAR ROOM: 555 Age: 66 Sex: F Admission Date: 11/13/2016 : 1950 Discharge Date: 11/15/2016 Attending Physician: Curtis Martin M.D. Primary Care Physician: Sergey Liang M.D. DISCHARGE SUMMARY DISCHARGE DIAGNOSES 1. Fever of unknown origin. 2. Urinary tract infection. 3. Status post recent endoscopic retrograde cholangiopancreatography. 4. Asthma. 5. Hypothyroidism. [facility] Dr. Warren, infectious disease and Dr. Rabago, GI. LABS AND DIAGNOSTIC PROCEDURES DURING HOSPITAL STAY 1. Chest x-ray - no active disease. 2. ERCP, please report in the chart. 3. Urine culture negative. 4. Blood culture so far negative. HISTORY OF PRESENT HOSPITAL STAY Please refer to H and P done by my colleague, Dr. Mariano Kidd for initial presentation of this female. ACTIVE PROBLEMS BY DIAGNOSES Fever of unknown origin: Patient was treated with empiric antibiotics. IV antibiotics initially was status post evaluation per ID. She has been fever free for more than 24 hours now. Okay per ID standpoint to be discharged on the Omnicef and Flagyl for seven more days and see discharge med rec below. UTI, again was treated with antibiotics. Urine culture unremarkable. Status post recent ERCP, status post evaluation per Dr. Rabago: Outpatient follow up with Dr. Rabago. History of asthma stable. Hypothyroidism: Continue home meds. DISCHARGE MEDICATIONS 1. Advair one puff inhaler daily. 2. Flonase two spray daily. 3. Gabapentin 300 mg t.i.d. 4. Fish oil 1,000 mg 3 times weekly. 5. Singulair 10 mg daily. 6. Multivitamin daily. 7. Aspirin 81 mg daily. Unit #: [id number] #: [id number] Patient: KIMMIE ALCANTAR 8. Synthroid 150 mcg daily. 9. Vitamin B and C complex 1 tablet daily. 10. Omnicef 300 mg p.o. b.i.d. for seven days. 11. Flagyl 500 mg p.o. t.i.d. for seven days. FOLLOWUP The patient is to followup with her primary care physician in two to three days. Outpatient followup with GI. DISPOSITION Home. Dictated by.Julius Martin M.D. OC/ts TD: 11/16/2016 09:29 JOB #: [id number] DISCHARGE SUMMARY Page 1 of 1 X Curtis Martin MD X DISCHARGE SUMMARY
--- NOTE | ~2016-11-13 | CO ---
Unit #: [id number] #: [id number] Patient: KIMMIE ALCANTAR [id number] [address] [address] [id number] I MR#: [id number] NAME: KIMMIE ALCANTAR. ROOM: [facility] Age: 66 Sex: F Admission Date: 11/13/2016 : 1950 Attending Physician: Curtis Martin M.D. Primary Care Physician: Sergey Liang M.D. Consultation Date: 11/14/2016 CONSULTATION REPORT REASON FOR CONSULTATION Abnormal LFTs and fever. HISTORY OF PRESENT ILLNESS Ms. Alacntar is a 66-year-old pleasant lady known to me from previous evaluation. She actually had an ERCP and stent removal yesterday. She had cholangitis and biliary stones about 6 to 8 weeks ago. She was treated with antibiotics, had a laparoscopic cholecystectomy, stone removal as well as stenting and had come yesterday for removal of that stents and the procedure went very well. Small amount of sludge was extracted at the time of the ERCP. Later on after the procedure, she presented with fever and chills. Fever going up to as high as 102. She denies any abdominal pain. She denies any nausea or vomiting. She denies any change in bowel movements. She denies any call for expectoration or urinary symptoms. PAST MEDICAL HISTORY Significant for history of cholangitis, gallbladder stones and ductal stones, also with history of asthma, history of depression, and history of hypothyroidism. ALLERGIES None. SOCIAL HISTORY Smoker. No alcohol. No drug abuse. FAMILY HISTORY Noncontributory. MEDICATIONS Reviewed. REVIEW OF SYSTEMS A complete 10-point review of systems was done, which is unremarkable other than as mentioned above. PHYSICAL EXAMINATION VITAL SIGNS: Stable. She was febrile and tachycardiac yesterday; however, has come down to normal now; respirations 18; pulse of 70; blood pressure of 130/70. HEENT: Pupils equal and reactive. Sclerae anicteric. Oral mucosa moist. NECK: No JVD. No lymphadenopathy. Unit #: [id number] #: [id number] Patient: KIMMIE ALCANTAR CHEST: Clear to auscultation bilaterally. CARDIOVASCULAR: Regular rate and rhythm. No murmurs. ABDOMEN: Soft, nontender, and nondistended. EXTREMITIES: Without clubbing, cyanosis, or edema. NEUROLOGIC: Intact. SKIN: Warm and dry. DIAGNOSTIC STUDIES LABORATORY RESULTS: Normal renal function. AST of 122, ALT of 158, alkaline phosphatase of 84, and bilirubin of 1.1. They are all elevated compared to readings from yesterday morning. Amylase and lipase were reported normal. White count is 7.2, hemoglobin is 13.7, and platelet count of 192. ASSESSMENT AND PLAN 1. The patient with febrile illness with chills and fever. After the endoscopic retrograde cholangiopancreatography, she had recent cholangitis. It is possible that she has bacteremia. It is also possible that she had mild aspiration pneumonitis versus urinary tract infection other versus other causes. She is being put on broad-spectrum antibiotics and being evaluated for fever. At this time, I do not see any evidence of any cholangitis or post-endoscopic retrograde cholangiopancreatography pancreatitis and other complications. 2. Elevated LFTs, most likely related to manipulation. We will continue to watch. 3. History of cholangitis and common bile duct stones, status post endoscopic retrograde cholangiopancreatography and stent removal. Thank you, Dr. Kidd for this interesting consult. We will follow along. Dictated by... Joanne Whittington/briana TD: 11/14/2016 15:08 JOB #: [id number] CONSULTATION REPORT Page 1 of 1 X Lenard Rabago MD X CONSULTATION REPORT
--- NOTE | ~2016-11-13 | HP ---
Unit #: [id number] #: [id number] Patient: KIMMIE ALCANTAR [id number] [address] [address] [id number] I MR#: [id number] NAME: KIMMIE ALCANTAR ROOM: [facility] Age: 66 Sex: F Admission Date: 11/13/2016 : 1950 Attending Physician: Curtis Martin M.D. Primary Care Physician: Sergey Liang M.D. HISTORY AND PHYSICAL CHIEF COMPLAINT Chills and fever. HISTORY OF PRESENTING ILLNESS 66-year-old female who was admitted last in August 2016 when she was diagnosed with cholecystitis, bacteremia and sepsis and had cholecystectomy done. Was doing well and yesterday morning she had ERCP done by Dr. Rabago and had stent removal. She was doing well until afternoon around 3 o'clock in the afternoon she felt chills, fever and just was not feeling well. Came to ER and patient's temperature was 102. The patient was admitted for possible sepsis and infection. According to patient, she is still feeling kind of hot but did not have chills last night. No complaint of nausea or vomiting. No complaint of abdominal pain. No complaint of diarrhea. She has not had bowel movement for the last two days. No complaint of dysuria, polyuria or hematuria. PAST MEDICAL HISTORY 1. Asthma/COPD. 2. History of depression and anxiety. 3. Hypothyroidism. PAST SURGICAL HISTORY 1. History of cholecystectomy. 2. History of tubal ligation. ALLERGIES No known drug allergies. SOCIAL HISTORY The patient has a history of smoking, continued to smoke. No history of alcohol abuse or drug abuse. FAMILY HISTORY Unremarkable. HOME MEDICATIONS 1. Flonase nasal spray daily. 2. Synthroid 150 mcg daily. 3. Gabapentin 300 mg three times a day. 4. Singulair 10 mg daily. 5. Advair 250/50 one puff inhaler daily. 6. Multivitamin daily. 7. Aspirin 81 mg daily. 8. Ibuprofen on a p.r.n. basis. Unit #: [id number] #: [id number] Patient: KIMMIE ALCANTAR 9. Fish oil capsule b.i.d. REVIEW OF SYSTEMS The patient had been doing well until yesterday at 3 p.m. No complaint of ear, nose, throat problems. She did have a nosebleed a few days ago and was told that it is because of the dry nasal cavity. No complaint of any skin rashes. No complaint of dizziness or syncopal episode. No complaint of headache. No ear, no eye problem. The rest is as per History of Presenting Illness. The patient does not complain of any shortness of breath, orthopnea or paroxysmal nocturnal dyspnea. PHYSICAL EXAMINATION GENERAL: The patient is lying in bed, is being evaluated in room 555. VITAL SIGNS: Blood pressure is 131/71, respiratory rate 18, pulse is 70, temperature 98.1. T-max 102.0. Oxygen saturation is 97%. HEENT: Head is normocephalic. Eye movements normal. NECK: Supple. CHEST: Fair air entry. No additional sounds. ABDOMEN: Soft. No tenderness. No rigidity or rebound. Bowel sounds are positive. EXTREMITIES: Negative edema. Pulses are palpable. [employer]: Awake, alert, oriented x3. No focal neurological deficit. DIAGNOSTIC STUDIES LABORATORY: WBC 12.5, hemoglobin 15.5, hematocrit 46.3, platelet count 233, sodium 137, potassium 4.1, chloride 102, BUN 14, creatinine 0.8, AST 350, ALT 247, alkaline phos. 119, lipase 26, lactic acid 2.0. Troponin is less than 0.05. ASSESSMENT AND PLAN The patient is being admitted to telemetry unit with: 1. Fever, source is unknown: Rule out bacteremia (1) sepsis. 2. Urinary tract infection with 1+ bacteria. 3. History of endoscopic retrograde cholangiopancreatography on 11/13/16 and stent removal per patient. 4. History of sepsis, cholecystitis and bacteremia in 09/12, status post cholecystectomy. 5. History of asthma/chronic obstructive pulmonary disease. 6. Hypothyroidism. 7. Ongoing tobacco abuse. Plan is to admit to telemetry unit. IV Zosyn 3.375 g q.6 hourly is being started. IV vancomycin 1 g dose will be given. Blood cultures have been done. Urine culture has been done. Dr. Warren from infectious disease will be consulted. Dr. Rabago from GI services will be consulted. Will continue to observe lab workup for liver enzymes which were elevated. Plan of care has been discussed with patient. Tobacco cessation counseling done. Please refer to progress note for further orders. Dictated by Joanne Sanchez TD: 11/14/2016 08:08 Unit #: [id number] #: [id number] Patient: KIMMIE ALCANTAR JOB #: [id number] HISTORY AND PHYSICAL Page 1 of 1 X Katey Kidd MD X HISTORY AND PHYSICAL
--- NOTE | ~2016-11-13 | EKG ---
PATIENT: KIMMIE ALCANTAR UNIT #: [id number] Ventricular Rate: 123 BPM Atrial Rate: 123 BPM P-R Interval: 144 ms QRS Duration: 82 ms Q-T Interval: 306 ms QTC Calculation(Bezet): 438 ms P Austin: 82 degrees Calculated R Austin: 58 degrees Calculated T Austin: 82 degrees Diagnosis Line: Sinus tachycardia Diagnosis Line: Otherwise normal ECG Diagnosis Line: Diagnosis Line: Confirmed by ANNIE VALENCIA MD ([id number]) on Diagnosis Line: 11/14/2016 8:30:42 AM INTERPRETING MD: ANNIE PEREIRA
[~2016-11-13 15:31] MED LIST changes: -ADVAIR 250-501 EAC1 INH; -FLAGYL PO; -GABAPENTIN300 M2 PO; -OMNICEF300 MG PO; -PATIENT'S PHARMACY
[2016-11-13 16:13] LABS: BASOPHIL# 0.1 X10e3 (0-0.3); BASOPHIL% 0.5 % (0-2.5); EOSINOPHIL# 0.1 X10e3 (0-0.7); HEMATOCRIT 46.3 % (35.0-45.0); HEMOGLOBIN 15.5 gm/dL (12.0-16.0); LYMPHOCYTE# 1.3 X10e3 (1.0-3.5); LYMPHOCYTE% 10.6 % (17.0-45.0); MEAN CELL VOLUME 94.2 FL (83-96); MEAN CORPUSCULAR HEMOGLOBIN 31.5 PG (28-34); MEAN CORPUSCULAR HGB CONC 33.5 g/dL (30-36); MONOCYTE# 0.6 X10e3 (0-1.0); MONOCYTE% 4.6 % (3.0-12.0); NEUTROPHIL# 10.4 X10e3 (1.5-7.1); NEUTROPHIL% 83.3 % (40-75); PLATELET COUNT 233 X10e3 (140-420); RED BLOOD COUNT 4.91 X10e (3.90-5.30); RED CELL DISTRIBUTION WIDTH 13.4 % (11.0-15.5); WHITE BLOOD COUNT 12.5 X10e3 (4.0-10.5)
[2016-11-13 16:16] LABS: DIFF IND NO
[2016-11-13 16:22] LABS: URINE SOURCE CLEAN CATCH
[2016-11-13 16:35] LABS: URINE APPEARANCE CLEAR; URINE BILIRUBIN NEG (NEG); URINE BLOOD NEG (NEG); URINE COLOR YELLOW; URINE GLUCOSE NEG (NEG); URINE KETONE NEG (NEG); URINE LEUKOCYTE ESTERASE 1+ (NEG); URINE NITRATE NEG (NEG); URINE PROTEIN NEG (NEG); URINE SPECIFIC GRAVITY 1.012 (1.003-1.035); URINE UROBILINOGEN 0.2 MG/DL (NEG)
[2016-11-13 16:38] LABS: CULTURE INDICATED? YES; URBCS1 AUWI 0-2 /[HPF] (0-2); URINE BACTERIA AUWI 1+ (NEGATIVE); URINE SQUAMOUS EPITHELIAL CELL FEW /[HPF]
[2016-11-13 16:40] LABS: ALBUMIN SERUM 4.5 g/dL (3.5-5.0); BILIRUBIN, DIRECT 0.2 mg/dL (0.0-0.2); BILIRUBIN,INDIRECT 0.4 mg/dL (0.0-0.9); BILIRUBIN,TOTAL 0.6 mg/dL (0.2-2.0); BUN/CREATININE RATIO 17.5; CALCIUM SERUM 9.3 mg/dL (8.4-10.2); CREATININE SERUM 0.8 mg/dL (0.6-1.4); GLOM FILT RATE Estimated 77.4 mL/min (>60); POTASSIUM 4.1 mmol/L (3.5-5.1); PROTEIN TOTAL SERUM 8.3 g/dL (6.0-8.3)
[2016-11-13] MEDS ORDERED: SYNTHROID PO (17:09)
[2016-11-13] MEDS ORDERED: GABAPENTIN300 M2 PO (17:10)
[2016-11-13] MEDS ORDERED: ADVAIR 250-501 EAC1 INH (17:10)
[2016-11-13] MEDS ORDERED: PATIENT'S PHARMACY (17:10)
[2016-11-13] MEDS ORDERED: SINGULAIR PO (17:10)
[2016-11-13 18:45] LABS: POC - CKMB 1.2 ng/mL (0.0-7.9); POC - TROPONIN <0.05 ng/mL (<=0.05)
[2016-11-14 06:27] LABS: HEMATOCRIT 40.7 % (35.0-45.0); HEMOGLOBIN 13.7 gm/dL (12.0-16.0); MEAN CELL VOLUME 94.3 FL (83-96); MEAN CORPUSCULAR HEMOGLOBIN 31.7 PG (28-34); MEAN CORPUSCULAR HGB CONC 33.6 g/dL (30-36); MEAN PLATELET VOLUME 10.1 FL (6.5-11.5); RED BLOOD COUNT 4.31 X10e (3.90-5.30); WHITE BLOOD COUNT 7.2 X10e3 (4.0-10.5)
[2016-11-14 06:49] LABS: ALBUMIN SERUM 3.3 g/dL (3.5-5.0); BILIRUBIN,TOTAL 1.1 mg/dL (0.2-2.0); BUN/CREATININE RATIO 12.85; CALCIUM SERUM 8.7 mg/dL (8.4-10.2); CREATININE SERUM 0.7 mg/dL (0.6-1.4); GLOM FILT RATE Estimated 90.9 mL/min (>60); POTASSIUM 3.9 mmol/L (3.5-5.1); PROTEIN TOTAL SERUM 6.1 g/dL (6.0-8.3)
[2016-11-15 07:39] LABS: HEMATOCRIT 41.8 % (35.0-45.0); MEAN CELL VOLUME 94.5 FL (83-96); MEAN CORPUSCULAR HEMOGLOBIN 31.7 PG (28-34); MEAN CORPUSCULAR HGB CONC 33.5 g/dL (30-36); MEAN PLATELET VOLUME 10.8 FL (6.5-11.5); RED BLOOD COUNT 4.42 X10e (3.90-5.30); WHITE BLOOD COUNT 6.9 X10e3 (4.0-10.5)
[2016-11-15 08:06] LABS: ALBUMIN SERUM 3.5 g/dL (3.5-5.0); BILIRUBIN,TOTAL 1.3 mg/dL (0.2-2.0); BUN/CREATININE RATIO 12.5; CALCIUM SERUM 8.9 mg/dL (8.4-10.2); CREATININE SERUM 0.8 mg/dL (0.6-1.4); GLOM FILT RATE Estimated 77.4 mL/min (>60); POTASSIUM 4.3 mmol/L (3.5-5.1); PROTEIN TOTAL SERUM 6.3 g/dL (6.0-8.3)
[2016-11-15] MEDS ORDERED: OMNICEF300 MG PO (18:25)
[2016-11-15] MEDS ORDERED: FLAGYL PO (18:26)
== END 2016-11-15 20:30 | disposition home or self-care (01) | DRG 690 ==
LOC: CED 15:31 → CEDOF 18:30 → C5B 18:55 → CEDOF 18:55 → CED 18:55 → C5B 22:03 → CEDOF 22:03 → C5B 22:03
PROVIDERS: Emergency Medicine; Hospitalist; Internal Medicine
PROC: 0FPB8DZ Removal of Intraluminal Device from Hepatobiliary Duct, Via Natural or Artificial Opening Endoscopic (ICD-10-PCS; principal; 2016-11-13)
PROC: 0F798ZZ Dilation of Common Bile Duct, Via Natural or Artificial Opening Endoscopic (ICD-10-PCS; 2016-11-13)
DX: N39.0 Urinary tract infection, site not specified (principal); J44.9 Chronic obstructive pulmonary disease, unspecified; F32.9 Major depressive disorder, single episode, unspecified; R50.9 Fever, unspecified; J45.909 Unspecified asthma, uncomplicated; F41.9 Anxiety disorder, unspecified; E03.9 Hypothyroidism, unspecified; F17.210 Nicotine dependence, cigarettes, uncomplicated; Z90.49 Acquired absence of other specified parts of digestive tract
CPT/HCPCS: 36415; 71010; 80048; 80053; 80076; 81003; 82150; 82553; 82947; 83605; 83690; 84484; 85025; 85027; 87040; 87086; 93005; 96361; 96365; 99285; J2543

== ENCOUNTER → 2016-11-13 | Day surgery (SDC) | payer OTHER ==
[~2016-11-13] MED LIST changes: +ACETAMINOPHEN PO; +ADVAIR 250-501 EAC1 INH; +ASPIRIN81 M2 PO; +AUGMENTIN PO; +B COMPLEX1 EACH; +FISH OIL 1,2001 EAC3 PO; +FLAGYL PO; +FLONASE ALLERG9.9 ML; +GABAPENTIN300 M2 PO; +HYDROCODON-ACE1 EAC9 PO; +IBUPROFEN IB200 M1 PO; +NEURONTIN300 MG PO; +OMNICEF300 MG PO; +PATIENT'S PHARMACY
--- NOTE | ~2016-11-13 | CR84 ---
[facility] A Service of [facility] / [facility] RADIOLOGY TEXT RESULTS PATIENT: KIMMIE ALCANTAR LOCATION: [facility] : 52 UNIT #: [id number] AGE: [address]: Lenard Rabago MD SEX: F ORDER DR: [id number] [facility] [address] [facility] [place], [place] [address] [id number] O MR#: [id number] Acc #: [id number] NAME: KIMMIE ALCANTAR : 1950 SEX: F STUDY DATE/TIME: 11/13/2016 7:22 UNIT: [facility] ROOM: STUDY DESCRIPTION: CR ERCP Biliary and Pancr SI Attending Physician: Lenard Rabago M.D. Ordering Physician: Lenard Rabago M.D. Primary Care Physician: Taylor Renner M.D. MEDICAL IMAGING REPORT This report is preliminary unless electronic signature is present EXAM ERCP INDICATIONS Common bile duct stones. Patient underwent a year CT on September 13, 2016 for obstructive jaundice. FINDINGS Nine fluoroscopic images from the endoscopy suite were submitted for interpretation. Initial image shows cholecystectomy clips within the right upper quadrant. Patient's common bile duct was cannulated. Patient was noted have sludge within the common bile duct which was also noted to be dilated and a balloon sweep was performed. Total fluoroscopy time was 2.07 minutes. IMPRESSION ERCP findings as noted above. Please see Dr. Rabago's report for full description of procedure and findings Dictated by... Robyn Wolfe M.D. THIS IS AN ELECTRONICALLY VERIFIED REPORT Robyn Wolfe M.D. at 11/16/2016 7:24 AM AFF/ea TD: 11/14/2016 23:03 JOB #: [id number] MEDICAL IMAGING REPORT Page 1 of 1 COPY
[2016-11-13 09:42] LABS: BASOPHIL# 0.1 X10e3 (0-0.3); BASOPHIL% 1.1 % (0-2.5); EOSINOPHIL# 0.3 X10e3 (0-0.7); EOSINOPHIL% 2.6 % (0.0-7.0); HEMATOCRIT 43.4 % (35.0-45.0); HEMOGLOBIN 14.7 gm/dL (12.0-16.0); LYMPHOCYTE# 2.6 X10e3 (1.0-3.5); LYMPHOCYTE% 26.9 % (17.0-45.0); MEAN CELL VOLUME 94.6 FL (83-96); MEAN CORPUSCULAR HEMOGLOBIN 31.9 PG (28-34); MEAN CORPUSCULAR HGB CONC 33.7 g/dL (30-36); MONOCYTE# 0.7 X10e3 (0-1.0); MONOCYTE% 7.2 % (3.0-12.0); NEUTROPHIL% 62.2 % (40-75); PLATELET COUNT 215 X10e3 (140-420); RED BLOOD COUNT 4.59 X10e (3.90-5.30); RED CELL DISTRIBUTION WIDTH 12.9 % (11.0-15.5); WHITE BLOOD COUNT 9.6 X10e3 (4.0-10.5)
[2016-11-13 09:43] LABS: DIFF IND NO
[2016-11-13 10:10] LABS: ALBUMIN SERUM 4.1 g/dL (3.5-5.0); BILIRUBIN,TOTAL 0.7 mg/dL (0.2-2.0); BUN/CREATININE RATIO 16.25; CALCIUM SERUM 8.9 mg/dL (8.4-10.2); CREATININE SERUM 0.8 mg/dL (0.6-1.4); GLOM FILT RATE Estimated 77.4 mL/min (>60); POTASSIUM 4.5 mmol/L (3.5-5.1); PROTEIN TOTAL SERUM 7.2 g/dL (6.0-8.3)
== END | disposition home or self-care (01) ==
LOC: COPS 06:23
PROVIDERS: Internal Medicine
DX: Z46.59 Encounter for fitting and adjustment of other gastrointestinal appliance and device (principal); K44.9 Diaphragmatic hernia without obstruction or gangrene; E03.9 Hypothyroidism, unspecified; J45.909 Unspecified asthma, uncomplicated; K21.9 Gastro-esophageal reflux disease without esophagitis; Z88.2 Allergy status to sulfonamides; F17.210 Nicotine dependence, cigarettes, uncomplicated; Z79.899 Other long term (current) drug therapy; Z90.49 Acquired absence of other specified parts of digestive tract; Z90.79 Acquired absence of other genital organ(s); Z98.41 Cataract extraction status, right eye; Z98.890 Other specified postprocedural states
CPT/HCPCS: 74330; 80053; 82947; 85025; J2250